=== PATIENT | female | born 1995 | race Asian ===

== ENCOUNTER 2021-07-30 10:52 | Inpatient (IN) ==
[2021-07-30] MEDS ORDERED: Lactated Ringers 1000 ml BAG 1,000 ML IV ONE ×2 (13:45→22:12)
[2021-07-30 17:15] LABS: ABS Lymphocytes 1.5 10^3/ul (1.0-4.8); ABS Monocytes 0.6 10^3/ul (0-0.8); ABS Neutrophils 7.6 10^3/ul (1.5-7.7); Eosinophil % 0.2 %; Hematocrit 38 % (35-47); Lymphocyte % 15.4 %; Mean Corpuscular HGB Conc 35 g/dL (31-36); Mean Corpuscular Hemoglobin 34 pg (27-31); Mean Corpuscular Volume 99 fL (80-97); Mean Platelet Volume 9.8 fL (7.4-10.4); Platelet Count 161 10^3/uL (150-450); Red Cell Distribution Width 13 % (10-15); White Blood Count 9.8 10^3/uL (3.5-10.8)
[2021-07-30 17:33] LABS: Urine Benzodiazepine Screen None Detected (None Detect); Urine Cannabinoids Screen None Detected (None Detect); Urine Opiates Screen None Detected (None Detect)
[2021-07-30] MEDS ORDERED: Lidocaine 1.5% EPI 1:200,000 30 ML SDV ONE (19:29)
[2021-07-30] MEDS ORDERED: OBEPIDURAL (200 ML) 200 ML EPIDURAL ONE (19:29)
[2021-07-30] MEDS: Phenylephrine 40 mcg/mL 10mL (400mcg) SYRINGE IV PUSH PRN ×2 (20:21→22:25)
[2021-07-30] MEDS ORDERED: Oxytocin in LR 20 UNITS/1,000 ML BAG IVPB SCH (21:45)
[2021-07-30 22:00] LABS: Urine Appearance Clear; Urine Bilirubin Negative (Negative); Urine Blood Negative (Negative); Urine Color Straw; Urine Glucose 1+(50 mg/dL) (Negative); Urine Ketones Trace (Negative); Urine Nitrite Negative (Negative); Urine Protein Negative (Negative); Urine Specific Gravity 1.004 (1.002-1.030); Urine Urobilinogen Negative (Negative)
[2021-07-30] MEDS ORDERED: Lactated Ringers 1000 ml BAG 1,000 ML IV SCH ×2 (22:00→23:00)
[2021-07-30] MEDS ORDERED: Lactated Ringers 1000 ml BAG 500 ML IV PRN ×2 (22:12)
[2021-07-30] MEDS ORDERED: EPHEDrine (Pressors) 50 MG/ML VIAL IV PUSH PRN ×2 (22:12)
[2021-07-30] MEDS ORDERED: Sodium Citrate/Citric Acid LIQ 15 ML UDC PO PRN (22:12)
[2021-07-30] MEDS ORDERED: Phenylephrine 40 mcg/mL 10mL (400mcg) SYRINGE IV PUSH PRN (22:12)
[2021-07-30] MEDS ORDERED: OBEPIDURAL (200 ML) 200 ML EPIDURAL SCH (23:00)
[2021-07-31] MEDS ORDERED: Methylergonovine 0.2 mg AMPULE 1 ml AMP ONE (05:12)
[2021-07-31] MEDS ORDERED: Witch Hazel PAD JAR ONE (06:23)
[2021-07-31] MEDS ORDERED: Dibucaine 1% OINT 28.35 GM TUBE ONE (06:23)
[2021-07-31] MEDS ORDERED: Witch Hazel PAD JAR TOPICAL PRN (07:10)
[2021-07-31] MEDS ORDERED: Dibucaine 1% OINT 28.35 GM TUBE PR PRN (07:10)
[2021-07-31] MEDS ORDERED: Lactated Ringers 1000 ml BAG 1,000 ML IV SCH (08:00)
[2021-07-31] MEDS ORDERED: Oxytocin in LR 20 UNITS/1,000 ML BAG IVPB SCH (08:00)
[2021-08-01 06:30] LABS: ABS Basophils 0.1 10^3/ul (0-0.2); ABS Eosinophils 0.1 10^3/ul (0-0.6); ABS Lymphocytes 1.6 10^3/ul (1.0-4.8); ABS Monocytes 0.8 10^3/ul (0-0.8); ABS Neutrophils 9.3 10^3/ul (1.5-7.7); Eosinophil % 0.4 %; Hematocrit 26 % (35-47); Hemoglobin 9.2 g/dL (12.0-16.0); Lymphocyte % 13.6 %; Mean Corpuscular HGB Conc 35 g/dL (31-36); Mean Corpuscular Hemoglobin 34 pg (27-31); Mean Corpuscular Volume 98 fL (80-97); Mean Platelet Volume 9.1 fL (7.4-10.4); Platelet Count 114 10^3/uL (150-450); Red Blood Count 2.69 10^6 /uL (3.70-4.87); Red Cell Distribution Width 14 % (10-15); White Blood Count 11.8 10^3/uL (3.5-10.8)
[2021-08-02 07:46] VITALS: BP 107/48
== END 2021-08-02 12:58 | disposition home or self-care (01) | DRG 807 ==
LOC: MCHOBOUT 10:52 → MCHOB 13:47
PROVIDERS: ADMIT Midwife; ATTEND Advanced Practice Midwife

== ENCOUNTER 2021-09-20 21:38 | Observation (INO) ==
[2021-09-20] MEDS ORDERED: Ondansetron 4 mg VIAL 2 MG/ML 2 ml VIAL IV ONE (22:41)
[2021-09-20] MEDS ORDERED: Lactated Ringers 1000 ml BAG 1,000 ML IV ONE (22:41)
[2021-09-20 23:03] LABS: ABS Basophils 0.1 10^3/ul (0-0.2); ABS Monocytes 1.5 10^3/ul (0-0.8); ABS Neutrophils 15.3 10^3/ul (1.5-7.7); Hematocrit 40 % (35-47); Hemoglobin 13.4 g/dL (12.0-16.0); Lymphocyte % 5.5 %; Mean Corpuscular HGB Conc 34 g/dL (31-36); Mean Corpuscular Hemoglobin 33 pg (27-31); Mean Corpuscular Volume 96 fL (80-97); Mean Platelet Volume 8.6 fL (7.4-10.4); Nucleated Red Blood Cells % 0.1; Platelet Count 215 10^3/uL (150-450); Red Blood Count 4.11 10^6 /uL (3.70-4.87); Red Cell Distribution Width 12 % (10-15); White Blood Count 17.7 10^3/uL (3.5-10.8)
[2021-09-20 23:07] LABS: Urine Appearance Cloudy; Urine Bilirubin Negative (Negative); Urine Blood Negative (Negative); Urine Color Yellow; Urine Glucose Negative (Negative); Urine Ketones 1+ (Negative); Urine Nitrite Negative (Negative); Urine Protein 1+(30 mg/dL) (Negative); Urine Specific Gravity 1.028 (1.002-1.030); Urine Urobilinogen Negative (Negative)
[2021-09-20 23:11] LABS: Urine Bacteria Absent (Absent); Urine Red Blood Cell 2+(6-10/hpf) (Absent); Urine Squamous Epithelial Cell Present (Absent); Urine Transitional Epithelial Present (Absent); Urine White Blood Cell 3+(>20/hpf) (Absent)
[2021-09-20 23:59] LABS: Albumin 4.5 g/dL (3.2-5.2); Albumin/Globulin Ratio 1.6 (1-3); C Reactive Protein 26.89 mg/L (<8.01); Calcium 9.9 mg/dL (8.6-10.3); Globulin 2.9 g/dL (2-4); Potassium 3.8 mmol/L (3.5-5.0); Total Bilirubin 0.9 mg/dL (0.2-1.0); Total Protein 7.4 g/dL (6.4-8.9); eGFR CKD-EPI 122.7 (>60)
[2021-09-20] MEDS ORDERED: Morphine 4 MG/ML VIAL (1 ml) IV ONE (23:59)
[2021-09-21] MEDS ORDERED: Piperacillin/Tazobac PREMIX(*) 3.375 GM in Premix IV 50 ML IVPB ONE (00:50)
[2021-09-21] MEDS ORDERED: NS 0.9% w/ 20 Meq KCL 1000 ml 1,000 ML IV SCH (01:00)
[2021-09-21] MEDS ORDERED: Zosyn 3.375 GM IV - ED ONCE IV ONE (01:30)
[2021-09-21] MEDS: HYDROmorphone 1 MG/1 ML SYRINGE IV SLOW PU PRN ×4 (02:22→11:40)
[2021-09-21] MEDS ORDERED: Piperacillin/Tazobactam VIAL 3.375 GM in NS 0.9% 100 ml BAG 100 ML IVPB SCH (05:30)
[2021-09-21] MEDS: ZOSYN 3.375 GM Q8H per EXTENDED INFUSION IV SCH ×3 (05:36→16:49)
[2021-09-21] MEDS: Ondansetron 4 mg VIAL 2 MG/ML 2 ml VIAL IV PRN ×2 (08:17→12:24)
[2021-09-21] MEDS ORDERED: NS 0.9% 1,000 ML IV ONE (09:00)
[2021-09-21] MEDS ORDERED: NS 0.9% 1,000 ML IV PRN (09:12)
[2021-09-21] MEDS ORDERED: Rocuronium 50 mg VIAL 10 mg/ml 5 ml VIAL (50 mg) ONE ×2 (10:56→13:14)
[2021-09-21] MEDS ORDERED: Bupivacaine 0.25% w/EPI 10 ML SDV ONE (11:34)
[2021-09-21] MEDS ORDERED: Ondansetron 4 mg VIAL 2 MG/ML 2 ml VIAL ONE ×2 (12:19→13:13)
[2021-09-21] MEDS ORDERED: NS 0.9% 1000 ml BAG 1,000 ML IV PRN (12:27)
[2021-09-21] MEDS ORDERED: NS 0.9% 1000 ml BAG 1,000 ML IV ONE (12:40)
[2021-09-21] MEDS ORDERED: Midazolam 2 mg/2 ml VIAL 1 mg/ml 2 ml VIAL (2 mg) ONE (12:43)
[2021-09-21] MEDS ORDERED: Buffered Lidocaine 1% SYRIN 1 ml INTRADERM ONE (12:51)
[2021-09-21] MEDS ORDERED: Lactated Ringers 1000 ml BAG 1,000 ML IV SCH (13:00)
[2021-09-21] MEDS ORDERED: Propofol 10 MG/ML 20 ML BTL ONE (13:13)
[2021-09-21] MEDS ORDERED: Lidocaine 2% PF 5 ML VIAL ONE (13:13)
[2021-09-21] MEDS ORDERED: Dexamethasone IV 4 MG/ML VIAL 1 ml VIAL ONE (13:13)
[2021-09-21] MEDS ORDERED: fentaNYL 100 mcg/2 ml 50 MCG/ML VIAL ONE (13:14)
[2021-09-21] MEDS ORDERED: Acetaminophen IV 1 GM/100ML 100 ML IV ONE (14:24)
[2021-09-21] MEDS ORDERED: Naloxone 0.4 mg VIAL 0.4 mg/ml 1 ml VIAL IV PRN (15:01)
[2021-09-21] MEDS ORDERED: Ondansetron 4 mg VIAL 2 MG/ML 2 ml VIAL IV PRN (15:01)
[2021-09-21] MEDS ORDERED: fentaNYL 100 mcg/2 ml 50 MCG/ML VIAL IV PRN (15:01)
[2021-09-21] MEDS ORDERED: Phenylephrine IV 10 MG/ML 1 ml VIAL ONE (15:20)
[2021-09-21] MEDS ORDERED: HYDROmorphone 0.5 MG/0.5 ML SYRINGE IV SLOW PU PRN (15:22)
[2021-09-21] MEDS ORDERED: HYDROmorphone 1 MG/1 ML SYRINGE IV SLOW PU PRN (15:22)
[2021-09-21] MEDS: KCL 20 MEQ IV SCH (16:24)
[2021-09-21] MEDS: NS 0.9% IV SCH (16:24)
[2021-09-22] MEDS: ZOSYN 3.375 GM Q8H per EXTENDED INFUSION IV SCH ×3 (00:35→16:36)
[2021-09-22] MEDS: NS 0.9% IV SCH ×2 (02:45→12:52)
[2021-09-22] MEDS: KCL 20 MEQ IV SCH ×2 (02:45→12:52)
[2021-09-22] MEDS: oxyCODONE/Acetamin 5/325 mg TAB PO PRN ×2 (13:40→22:35)
[2021-09-22] MEDS: ZOSYN 3.375 GM Q6H IV SCH (22:36)
[2021-09-23] MEDS: ZOSYN 3.375 GM Q6H IV SCH ×3 (04:46→16:32)
[2021-09-23] MEDS: oxyCODONE/Acetamin 5/325 mg TAB PO PRN (04:51)
[2021-09-23] MEDS: Ondansetron 4 mg VIAL 2 MG/ML 2 ml VIAL IV PRN (12:32)
[2021-09-23 15:57] VITALS: BP 103/57
== END 2021-09-23 19:40 | disposition home or self-care (01) ==
LOC: ED 21:38 → EDHOLD 21:38 → SSU 09-21 04:26
PROVIDERS: ADMIT Surgery; ATTEND Surgery